=== PATIENT | female | born 1955 | race Caucasian/White ===

== ENCOUNTER 2020-10-14 06:27 | Day surgery (SDC) | payer BC, MEDICARE ==
[~2020-10-14] VITALS: Ht 170.2 cm; Wt 91.2 kg
[~2020-10-14 06:27] MED LIST: AMIO200T33 PO; LEVO150T10 PO; LISI-646 PO; LORA0.5T20 PO; RIVA20TA PO
[2020-10-14] MEDS ORDERED: VANCOMYCIN 1GM/250ML 250 ML IV ONE (08:04)
[2020-10-14] MEDS ORDERED: LIDOCAINE 2%HCL (LOCAL ANESTH.) INJ 20ML MDV ONE (08:18)
[2020-10-14] MEDS ORDERED: IODIXANOL 320MG/ML 100ML BTL IV ONE (09:19)
[2020-10-14] MEDS ORDERED: VANCOMYCIN HCL 1000 MG VL ONE (09:19)
[2020-10-14] MEDS ORDERED: MIDAZOLAM HCL 1MG/1ML-2 ML VIAL ONE ×2 (09:19→11:54)
[2020-10-14] MEDS ORDERED: fentaNYL CITRATE 100 MCG/2 ML VL ONE ×2 (09:19→11:54)
[2020-10-14] MEDS ORDERED: ACETAMINOPHEN 325 MG TAB PO PRN (13:00)
[2020-10-14] MEDS ORDERED: HYDROcodone-ACET 5/325MG TAB PO PRN (13:00)
== END 2020-10-14 14:35 | disposition home or self-care (01) ==
LOC: CATH 06:27
PROVIDERS: ATTEND Internal Medicine
DX: Z45.018 Encounter for adjustment and management of other part of cardiac pacemaker (principal); I48.0 Paroxysmal atrial fibrillation; I49.5 Sick sinus syndrome; I10 Essential (primary) hypertension; E78.5 Hyperlipidemia, unspecified; E66.01 Morbid (severe) obesity due to excess calories; Z88.1 Allergy status to other antibiotic agents; Z20.828 Contact with and (suspected) exposure to other viral communicable diseases; Z98.890 Other specified postprocedural states; Z88.8 Allergy status to other drugs, medicaments and biological substances; Z86.73 Personal history of transient ischemic attack (TIA), and cerebral infarction without residual deficits; Z87.891 Personal history of nicotine dependence; Z79.899 Other long term (current) drug therapy; Z68.31 Body mass index [BMI] 31.0-31.9, adult
CPT/HCPCS: 33208; 71045; 93005; C1785; C1892; C1898; J2250; J3010; J3370; J7030; Q9967; U0003; 99152; 99153

== ENCOUNTER → 2020-11-04 | Outpatient (CLI) | payer BC, MEDICARE ==
[~2020-11-04] MED LIST changes: -LISI-646 PO; +LISI20TA28 PO
[2020-11-04 15:04] LABS: Potassium 4.4 mmol/L (3.5-5.1)
[2020-11-04 15:09] LABS: Albumin 3.8 g/dL (3.4-5.0); BUN/Creatinine Ratio 14.4; Calcium 9.2 mg/dL (8.5-10.1)
[2020-11-04 15:12] LABS: Bilirubin, Total 0.3 mg/dL (0.2-1.0)
[2020-11-04 16:00] LABS: Urine Bacteria FEW /hpf (None Seen); Urine Blood 1+ /uL (Negative); Urine Specific Gravity 1.022 (1.001-1.035); Urine WBC 107 /hpf (0 - 5)
== END | disposition home or self-care (01) ==
LOC: LAB 14:29
PROVIDERS: ATTEND Internal Medicine
DX: I12.9 Hypertensive chronic kidney disease with stage 1 through stage 4 chronic kidney disease, or unspecified chronic kidney disease (principal); N18.30 Chronic kidney disease, stage 3 unspecified
CPT/HCPCS: 36415; 80053; 80162; 81001

== ENCOUNTER → 2020-11-29 | Outpatient (CLI) | payer BC, MEDICARE ==
[~2020-11-29] MED LIST changes: +LISI-646 PO; -LISI20TA28 PO
== END | disposition home or self-care (01) ==
LOC: XYW 07:43
PROVIDERS: ATTEND Internal Medicine
DX: I07.1 Rheumatic tricuspid insufficiency (principal); R42 Dizziness and giddiness
CPT/HCPCS: 93306

== ENCOUNTER → 2021-01-14 | Outpatient (CLI) | payer BC, MEDICARE ==
[~2021-01-14] VITALS: Ht 170.2 cm; Wt 87.1 kg
[~2021-01-14] MED LIST changes: +ADENOSINE 73 MG in GIVE UN-DILUTED 0 ML IV STA
[2021-01-14 08:42] VITALS: BP 168/64
== END | disposition home or self-care (01) ==
LOC: XY 07:02
PROVIDERS: ATTEND Internal Medicine
DX: R00.2 Palpitations (principal)
CPT/HCPCS: 78452; 93017; A9500; J0153

== ENCOUNTER → 2021-02-12 | Outpatient (CLI) | payer BC, MEDICARE ==
[~2021-02-12] MED LIST changes: -ADENOSINE 73 MG in GIVE UN-DILUTED 0 ML IV STA; -LISI-646 PO; +LISI20TA28 PO
[2021-02-12 12:55] LABS: Basophils # (auto) 0.1 10 ^3/uL (0-0.2); Basophils % (auto) 0.9 % (0.0-2.0); Eosinophils # (auto) 0.1 10 ^3/uL (0-0.8); Eosinophils % (auto) 1.4 % (0.0-7.0); Hematocrit 40.2 % (36.0-46.0); Hemoglobin 13.2 g/dL (12.2-16.2); Lymphocytes # (auto) 2.3 10 ^3/uL (0.4-5.4); Lymphocytes % (auto) 26.8 % (10.0-50.0); Mean Corpuscular Hemoglobin 29.6 pg (28.0-32.0); Mean Corpuscular Volume 89.7 fL (80.0-100.0); Monocytes # (auto) 0.7 10 ^3/uL (0-1.3); Monocytes % (auto) 7.8 % (0.0-12.0); Neutrophils # (auto) 5.3 10 ^3/uL (1.6-8.6); Neutrophils % (auto) 63.1 % (37.0-80.0); Platelet Count (auto) 296 10^3/uL (140-450); Red Blood Cells 4.48 10^6/uL (4.0-5.20); Red Cell Distribution Width 13.3 % (11.8-14.3); White Blood Cell 8.5 10^3/uL (4.4-10.8)
[2021-02-12 13:40] LABS: Albumin 3.5 g/dL (3.4-5.0); Calcium 9.1 mg/dL (8.5-10.1); Potassium 4.1 mmol/L (3.5-5.1)
[2021-02-12 13:44] LABS: BUN/Creatinine Ratio 13.2; Bilirubin, Total 0.4 mg/dL (0.2-1.0); Total Protein 7.2 g/dL (6.4-8.2)
[2021-02-12 14:04] LABS: Free T4 (Free Thyroxine) 1.91 ng/dL (0.89-1.76); T3 Total 0.62 ng/mL (0.60-1.81)
== END | disposition home or self-care (01) ==
LOC: LAB 12:34
PROVIDERS: ATTEND Physician Assistant
DX: I12.9 Hypertensive chronic kidney disease with stage 1 through stage 4 chronic kidney disease, or unspecified chronic kidney disease (principal); N18.30 Chronic kidney disease, stage 3 unspecified; E78.5 Hyperlipidemia, unspecified; E03.9 Hypothyroidism, unspecified; E55.9 Vitamin D deficiency, unspecified
CPT/HCPCS: 36415; 80053; 80061; 82306; 84439; 84443; 84480; 85025

== ENCOUNTER 2022-07-13 14:40 | Emergency (ER) | payer BC, MEDICARE ==
[~2022-07-13] VITALS: Ht 172.7 cm; Wt 76.0 kg
[2022-07-13 17:04] LABS: Basophils # (auto) 0.1 10 ^3/uL (0-0.2); Basophils % (auto) 0.4 % (0.0-2.0); Eosinophils # (auto) 0.3 10 ^3/uL (0-0.8); Eosinophils % (auto) 1.5 % (0.0-7.0); Hematocrit 43.6 % (36.0-46.0); Lymphocytes # (auto) 0.9 10 ^3/uL (0.4-5.4); Lymphocytes % (auto) 5.1 % (10.0-50.0); Mean Corpuscular Hgb Conc. 32.2 g/dL (32.0-36.0); Monocytes # (auto) 1.1 10 ^3/uL (0-1.3); Monocytes % (auto) 6.4 % (0.0-12.0); Neutrophils # (auto) 14.9 10 ^3/uL (1.6-8.6); Neutrophils % (auto) 86.6 % (37.0-80.0); Red Blood Cells 4.85 10^6/uL (4.0-5.20); Red Cell Distribution Width 13.4 % (11.8-14.3); White Blood Cell 17.2 10^3/uL (4.4-10.8)
[2022-07-13 17:22] LABS: Albumin 3.5 g/dL (3.4-5.0); Calcium 8.9 mg/dL (8.5-10.1); Potassium 3.9 mmol/L (3.5-5.1)
[2022-07-13 17:23] LABS: INR 1.17 (0.9-1.15); Partial Thromboplastin Time 34.2 sec (24.6-33.4)
[2022-07-13 17:26] LABS: BUN/Creatinine Ratio 16.8; Bilirubin, Total 1.2 mg/dL (0.2-1.0); Total Protein 6.7 g/dL (6.4-8.2)
[2022-07-13] MEDS ORDERED: LEVO-28 PO (17:33)
[2022-07-13] MEDS ORDERED: cefTRIAXone SOD 1,000 MG VL IM ONE (17:45)
[2022-07-13] MEDS ORDERED: AZITHROMYCIN 250 MG TAB PO ONE (17:45)
[2022-07-13 21:10] VITALS: BP 139/63
[2022-07-13] MEDS ORDERED: ONDANSETRON ODT 4 MG TAB PO ONE (21:30)
== END 2022-07-13 21:44 | disposition home or self-care (01) ==
LOC: ER 14:40
DX: I13.0 Hypertensive heart and chronic kidney disease with heart failure and stage 1 through stage 4 chronic kidney disease, or unspecified chronic kidney disease (principal); I50.9 Heart failure, unspecified; N18.9 Chronic kidney disease, unspecified; J18.9 Pneumonia, unspecified organism; Z20.822 Contact with and (suspected) exposure to COVID-19; Z86.73 Personal history of transient ischemic attack (TIA), and cerebral infarction without residual deficits
CPT/HCPCS: 36415; 71045; 80053; 83880; 84484; 85025; 85379; 85610; 85730; 87426; 93005; 96372; 99285; J0696; Q0162

== ENCOUNTER → 2022-07-15 | Outpatient (CLI) | payer BC ==
[~2022-07-15] MED LIST changes: +LEVO-28 PO
== END | disposition home or self-care (01) ==
LOC: LAB 12:36
PROVIDERS: ATTEND Nurse Practitioner Family
DX: N39.0 Urinary tract infection, site not specified (principal)
CPT/HCPCS: 87086

== ENCOUNTER → 2023-03-03 | Outpatient (CLI) | payer BC, MEDICARE ==
[2023-03-03 07:28] LABS: Basophils # (auto) 0.1 10 ^3/uL (0-0.2); Basophils % (auto) 0.8 % (0.0-2.0); Eosinophils # (auto) 0.2 10 ^3/uL (0-0.8); Eosinophils % (auto) 1.8 % (0.0-7.0); Hematocrit 45.2 % (36.0-46.0); Hemoglobin 14.9 g/dL (12.2-16.2); Lymphocytes # (auto) 2.7 10 ^3/uL (0.4-5.4); Mean Corpuscular Hemoglobin 30.2 pg (28.0-32.0); Mean Corpuscular Volume 91.6 fL (80.0-100.0); Monocytes # (auto) 0.9 10 ^3/uL (0-1.3); Monocytes % (auto) 8.7 % (0.0-12.0); Neutrophils # (auto) 5.9 10 ^3/uL (1.6-8.6); Neutrophils % (auto) 60.7 % (37.0-80.0); Red Blood Cells 4.94 10^6/uL (4.0-5.20); Red Cell Distribution Width 13.9 % (11.8-14.3); White Blood Cell 9.8 10^3/uL (4.4-10.8)
[2023-03-03 08:38] LABS: Albumin 3.5 g/dL (3.4-5.0); Calcium 9.2 mg/dL (8.5-10.1); Potassium 3.9 mmol/L (3.5-5.1)
[2023-03-03 08:45] LABS: Bilirubin, Total 0.5 mg/dL (0.2-1.0); Total Protein 6.8 g/dL (6.4-8.2)
== END | disposition home or self-care (01) ==
LOC: LAB 07:13
PROVIDERS: ATTEND Nurse Practitioner Family
DX: I48.20 Chronic atrial fibrillation, unspecified (principal); E03.9 Hypothyroidism, unspecified; E78.5 Hyperlipidemia, unspecified
CPT/HCPCS: 36415; 80053; 80061; 84439; 84443; 85025

== ENCOUNTER → 2023-10-05 | Outpatient (CLI) | payer BC, MEDICARE ==
[~2023-10-05] MED LIST changes: -LEVO-28 PO; +LEVO500T91 PO; -LISI20TA28 PO; +LISI20TA56 PO; +LORA-1121 PO; -LORA0.5T20 PO
== END | disposition home or self-care (01) ==
LOC: LAB 07:31
PROVIDERS: ATTEND Nurse Practitioner Family
DX: E03.9 Hypothyroidism, unspecified (principal)
CPT/HCPCS: 36415; 84439; 84443

== ENCOUNTER → 2024-02-28 | Outpatient (CLI) | payer BC, MEDICARE ==
[2024-02-28 07:23] LABS: Basophils # (auto) 0.1 10 ^3/uL (0-0.2); Eosinophils # (auto) 0.2 10 ^3/uL (0-0.8); Eosinophils % (auto) 2.3 % (0.0-7.0); Hematocrit 40.4 % (36.0-46.0); Hemoglobin 13.3 g/dL (12.2-16.2); Lymphocytes # (auto) 2.4 10 ^3/uL (0.4-5.4); Lymphocytes % (auto) 27.2 % (10.0-50.0); Mean Corpuscular Hemoglobin 30.2 pg (28.0-32.0); Mean Corpuscular Hgb Conc. 32.9 g/dL (32.0-36.0); Mean Corpuscular Volume 91.8 fL (80.0-100.0); Monocytes # (auto) 0.9 10 ^3/uL (0-1.3); Monocytes % (auto) 10.2 % (0.0-12.0); Neutrophils # (auto) 5.2 10 ^3/uL (1.6-8.6); Neutrophils % (auto) 59.3 % (37.0-80.0); Red Cell Distribution Width 13.6 % (11.8-14.3); White Blood Cell 8.8 10^3/uL (4.4-10.8)
[2024-02-28 08:07] LABS: Alanine Aminotransferase 23 U/L (7-40); Albumin 4.3 g/dL (3.2-4.8); Alkaline Phosphatase 75 U/L (46-116); Anion Gap 6 (5-15); Aspartate Aminotransferase 13 U/L (13-40); BUN/Creatinine Ratio 14.6 (10.0-20.0); Bilirubin, Direct 0.1 mg/dL (<0.3); Blood Urea Nitrogen 20 mg/dL (9-23); Calcium 9.7 mg/dL (8.5-10.1); Carbon Dioxide 28 mmol/L (20-30); Chloride 107 mmol/L (98-107); Cholesterol 211 mg/dL (< 200); Glucose 96 mg/dL (74-106); HDL Cholesterol 51 mg/dL (40-59); LDL Cholesterol 136 mg/dL (< 100); Sodium 141 mmol/L (136-145); Triglycerides 123 mg/dL (< 150)
[2024-02-28 08:08] LABS: Bilirubin, Total 0.5 mg/dL (0.2-1.0); Total Protein 6.7 g/dL (5.7-8.2)
== END | disposition home or self-care (01) ==
LOC: LAB 07:04
PROVIDERS: ATTEND Specialist
DX: E11.9 Type 2 diabetes mellitus without complications (principal); E03.9 Hypothyroidism, unspecified; E78.5 Hyperlipidemia, unspecified; I10 Essential (primary) hypertension; D64.9 Anemia, unspecified; R68.89 Other general symptoms and signs
CPT/HCPCS: 36415; 80053; 80061; 82043; 82248; 83036; 84439; 84443; 85025

== ENCOUNTER → 2024-06-01 | Outpatient (CLI) | payer BC, MEDICARE ==
[2024-06-01 07:38] LABS: Basophils # (auto) 0.1 10 ^3/uL (0-0.2); Basophils % (auto) 0.9 % (0.0-2.0); Eosinophils # (auto) 0.2 10 ^3/uL (0-0.8); Eosinophils % (auto) 1.6 % (0.0-7.0); Hematocrit 45.1 % (36.0-46.0); Hemoglobin 15.2 g/dL (12.2-16.2); Lymphocytes # (auto) 2.7 10 ^3/uL (0.4-5.4); Lymphocytes % (auto) 26.7 % (10.0-50.0); Mean Corpuscular Hemoglobin 30.8 pg (28.0-32.0); Mean Corpuscular Hgb Conc. 33.7 g/dL (32.0-36.0); Mean Corpuscular Volume 91.4 fL (80.0-100.0); Monocytes % (auto) 9.5 % (0.0-12.0); Neutrophils # (auto) 6.3 10 ^3/uL (1.6-8.6); Neutrophils % (auto) 61.3 % (37.0-80.0); Nucleated Red Blood Cells % 0.1 %; Red Blood Cells 4.94 10^6/uL (4.0-5.20); Red Cell Distribution Width 14.2 % (11.8-14.3); White Blood Cell 10.3 10^3/uL (4.4-10.8)
[2024-06-01 07:50] LABS: Alanine Aminotransferase 22 U/L (7-40); Albumin 4.3 g/dL (3.2-4.8); Alkaline Phosphatase 83 U/L (46-116); Anion Gap 3 (5-15); Aspartate Aminotransferase 9 U/L (13-40); BUN/Creatinine Ratio 14.6 (10.0-20.0); Bilirubin, Direct 0.2 mg/dL (<0.3); Bilirubin, Total 0.5 mg/dL (0.2-1.0); Blood Urea Nitrogen 21 mg/dL (9-23); Calcium 9.5 mg/dL (8.7-10.4); Carbon Dioxide 32 mmol/L (20-30); Chloride 108 mmol/L (98-107); Cholesterol 125 mg/dL (< 200); Glucose 99 mg/dL (74-106); Potassium 4.1 mmol/L (3.5-5.1); Sodium 143 mmol/L (136-145); Total Protein 6.7 g/dL (5.7-8.2)
== END | disposition home or self-care (01) ==
LOC: LAB 06:59
PROVIDERS: ATTEND Specialist
DX: I10 Essential (primary) hypertension (principal); E11.9 Type 2 diabetes mellitus without complications; E78.5 Hyperlipidemia, unspecified; R68.89 Other general symptoms and signs; E03.9 Hypothyroidism, unspecified; D64.9 Anemia, unspecified
CPT/HCPCS: 36415; 80048; 80076; 82465; 83036; 84443; 85025

== ENCOUNTER → 2024-08-10 | Outpatient (CLI) | payer BC, MEDICARE ==
[2024-08-10 07:37] LABS: Basophils # (auto) 0.1 10 ^3/uL (0-0.2); Eosinophils # (auto) 0.2 10 ^3/uL (0-0.8); Eosinophils % (auto) 1.9 % (0.0-7.0); Hematocrit 43.2 % (36.0-46.0); Hemoglobin 14.7 g/dL (12.2-16.2); Lymphocytes # (auto) 2.2 10 ^3/uL (0.4-5.4); Lymphocytes % (auto) 24.4 % (10.0-50.0); Mean Corpuscular Hemoglobin 31.1 pg (28.0-32.0); Mean Corpuscular Hgb Conc. 34.1 g/dL (32.0-36.0); Mean Corpuscular Volume 91.1 fL (80.0-100.0); Monocytes # (auto) 0.9 10 ^3/uL (0-1.3); Monocytes % (auto) 9.9 % (0.0-12.0); Neutrophils # (auto) 5.7 10 ^3/uL (1.6-8.6); Neutrophils % (auto) 62.8 % (37.0-80.0); Platelet Count (auto) 249 10^3/uL (140-450); Red Blood Cells 4.74 10^6/uL (4.0-5.20); Red Cell Distribution Width 14.4 % (11.8-14.3)
[2024-08-10 08:05] LABS: Alanine Aminotransferase 39 U/L (7-40); Albumin 4.4 g/dL (3.2-4.8); Alkaline Phosphatase 86 U/L (46-116); Anion Gap 4 (5-15); Aspartate Aminotransferase 17 U/L (13-40); BUN/Creatinine Ratio 12.5 (10.0-20.0); Bilirubin, Direct 0.2 mg/dL (<0.3); Bilirubin, Total 0.6 mg/dL (0.2-1.0); Blood Urea Nitrogen 16 mg/dL (9-23); Calcium 9.8 mg/dL (8.7-10.4); Carbon Dioxide 30 mmol/L (20-31); Chloride 107 mmol/L (98-107); Cholesterol 124 mg/dL (< 200); Glucose 102 mg/dL (74-106); HDL Cholesterol 57 mg/dL (40-59); LDL Cholesterol 49 mg/dL (< 100); Potassium 4.3 mmol/L (3.5-5.1); Sodium 141 mmol/L (136-145); Total Protein 6.9 g/dL (5.7-8.2); Triglycerides 137 mg/dL (< 150)
== END | disposition home or self-care (01) ==
LOC: LAB 07:22
PROVIDERS: ATTEND Specialist
DX: R73.09 Other abnormal glucose (principal); R68.89 Other general symptoms and signs; I10 Essential (primary) hypertension; E03.9 Hypothyroidism, unspecified; D64.9 Anemia, unspecified; E78.5 Hyperlipidemia, unspecified
CPT/HCPCS: 36415; 80048; 80061; 80076; 83036; 84443; 85025

== ENCOUNTER 2024-11-08 06:33 | Day surgery (SDC) | payer BC, MEDICARE ==
[2024-11-07 10:52] LABS: Basophils # (auto) 0.1 10 ^3/uL (0-0.2); Basophils % (auto) 0.6 % (0.0-2.0); Eosinophils # (auto) 0.1 10 ^3/uL (0-0.8); Eosinophils % (auto) 1.4 % (0.0-7.0); Hematocrit 43.3 % (36.0-46.0); Hemoglobin 14.5 g/dL (12.2-16.2); Lymphocytes # (auto) 2.5 10 ^3/uL (0.4-5.4); Lymphocytes % (auto) 23.8 % (10.0-50.0); Mean Corpuscular Hemoglobin 30.7 pg (28.0-32.0); Mean Corpuscular Hgb Conc. 33.5 g/dL (32.0-36.0); Mean Corpuscular Volume 91.6 fL (80.0-100.0); Monocytes # (auto) 0.8 10 ^3/uL (0-1.3); Monocytes % (auto) 7.7 % (0.0-12.0); Neutrophils # (auto) 6.9 10 ^3/uL (1.6-8.6); Neutrophils % (auto) 66.5 % (37.0-80.0); Nucleated Red Blood Cells % 0.1 %; Platelet Count (auto) 242 10^3/uL (140-450); Red Blood Cells 4.73 10^6/uL (4.0-5.20); White Blood Cell 10.4 10^3/uL (4.4-10.8)
[2024-11-07 11:23] LABS: INR 1.25 (0.9-1.15)
[2024-11-07 11:29] LABS: Chloride 105 mmol/L (98-107); Potassium 4.3 mmol/L (3.5-5.1)
[2024-11-07 11:30] LABS: Carbon Dioxide 30 mmol/L (20-31)
[2024-11-07 11:31] LABS: Calcium 10.1 mg/dL (8.7-10.4)
[2024-11-07 11:35] LABS: Glucose 101 mg/dL (74-106)
[2024-11-07 11:36] LABS: BUN/Creatinine Ratio 12.6 (10.0-20.0); Blood Urea Nitrogen 19 mg/dL (9-23); Urine Bacteria FEW /hpf (None Seen); Urine Blood TRACE /uL (Negative); Urine Clarity Clear (Clear); Urine Color Light-Yellow (Yellow); Urine Protein, UAD 1+ (Negative); Urine Specific Gravity 1.016 (1.001-1.035); Urine Squamous Epithelial Cell FEW /hpf (<5); Urine Urobilinogen Normal (Negative); Urine WBC 2 /HPF (0-5)
[2024-11-07 12:32] LABS: Anion Gap 7 (5-15); Sodium 142 mmol/L (136-145)
[~2024-11-08] VITALS: Ht 167.6 cm; Wt 77.1 kg
[~2024-11-08 06:33] MED LIST changes: -AMIO200T33 PO; +DIGO0.12 PO; +DILT1TAB12 PO; +DRON400T PO; +EVOL140I SC; +EZET10TA22 PO; +LEVO112T4 PO; -LEVO150T10 PO; -LEVO500T91 PO; -LISI20TA56 PO; +METO-158 PO
[2024-11-08] MEDS: LIDOCAINE VISCOUS 2% 15ML UD PO ONE (08:30)
[2024-11-08] MEDS: fentaNYL CITRATE 100 MCG/2 ML VL IV ONE (08:30)
[2024-11-08] MEDS: MIDAZOLAM HCL 2MG/2ML 2ml VIAL (1mg/ml) IV ONE (08:40)
--- NOTE | 2024-11-08 09:06 | DVHOP2 ---
Operative Report Trans-Esophageal Echocardiogram PROCEDURE REPORT Date of Service: 11/08/2024 Imaging Services Director: Emma Velasquez MD PROCEDURE PERFORMED: Transesophageal echocardiogram, conscious sedation administration and supervision, more than 15 minutes. Intra cardiac bubble study. Electrical Cardioversion. PREOPERATIVE DIAGNOSES: Atrial fibrillation: sent for ELBA/Electrical Cardioversi on. DESCRIPTION OF PROCEDURE: The patient signed informed consent understanding risks, benefits and alternatives of the procedure, she wished to proceed. The patient was given 15 mL of oral viscous lidocaine. She was placed in a left lateral decubitus position and conscious sedation was administered per sleep lab technologist protocol (1 mg of Versed and 50 mcg of Fentanyl). I administered a bite block into her mouth and a ELBA probe into the mid esophagus without any difficulties or complications. Multiple planar images were obtained. Bubble study was also performed. At the completion of procedure, ELBA probe was removed and there were no immediate complications. Vitals signs were stable throughout the procedure. As there was no intracardiac thrombus, we proceeded with Electrical Cardioversion. Patient was given extra sedation (another 1 mg of Versed and 50 mcg of Fentanyl). Patient was shocked with 120 Joules and was successfully Cardioverted to Normal sinus rhythm. FINDINGS: 1. Left ventricle: LVEF was 65%. There was no gross wall motion abnormality seen. 2. Right ventricle: Normal RV size with normal systolic function. 3. Left atrium: LA was mildly enlarged 4. Right atrium: RA was mildly enlarged 5. Mitral valve,: Mild Mitral regurgitation, no significant stenosis, normal functioning valve 6. Left atrial appendage: No evidence of thrombus. 7. Aortic valve: Aortic valve was trileaflet. There was no stenosis/Insufficiency. 8. Pulmonic valve: Trivial pulmonic insufficiency. No significant stenosis. 9. Tricuspid valve: Mild tricuspid regurgitation was seen. 10. Interatrial septum: Negative color flow for right to left shunt was observed. Bubble study was negative. 11. Pericardium: No significant effusion. 12. Thoracic aorta: No significant plaquing. As there was no intracardiac thrombus, we proceeded with Electrical Cardioversion. Patient was successfully Cardioverted to Normal sinus rhythm. Before discharge from Cathlab, she was found to be back to Atrial fibrillation with moderate ventricular response (stable hemodynamics) You may consider referral for A-fib Ablation (PVI) Continue full anticoagulation (on Xarelto). EMMA VELASQUEZ MD Nov 08, 2024 09:06
--- NOTE | 2024-11-08 16:14 | ECG ---
[facility] Test Date: 2024-11-08 Test Time: 07:36:31 Pat Name: FARHAT MORRIS Department: Room: Gender: F Vp Product Management: : 1955 Requested By: EMMA VELASQUEZ Order Number: [id number] Reading MD: Lobo Fuentes Measurements Intervals [place] Rate: 69 P: 0 TX: 0 QRS: 63 QRSD: 70 T: -88 QT: 374 QTc: 400 Interpretive Statements Atrial flutter/fibrillation Electronic ventricular pacemaker LVH with secondary repolarization abnormality Electronically Signed On 11-09-2024 8:13:12 PST by Lobo Fuentes Please click the below link to view image of tracing.
--- NOTE | 2024-11-09 14:51 | ECG ---
[facility] Test Date: 2024-11-08 Test Time: 08:58:48 Pat Name: FARHAT MORRIS Department: Room: Gender: F Flat Machine Cutter: ANAMIKA : 1955 Requested By: EMMA VELASQUEZ Order Number: [id number] Reading MD: Lobo Fuentes Measurements Intervals [place] Rate: 71 P: 0 NE: 0 QRS: 17 QRSD: 78 T: -72 QT: 378 QTc: 410 Interpretive Statements Demand pacemaker, interpretation is based on intrinsic rhythm Atrial fibrillation with premature ventricular or aberrantly conducted complexes ST & T wave abnormality, consider inferior ischemia or digitalis effect ST & T wave abnormality, consider anterolateral ischemia or digitalis effect Electronically Signed On 11-10-2024 8:30:29 PST by Lobo Fuentes Please click the below link to view image of tracing.
== END 2024-11-08 10:23 | disposition home or self-care (01) ==
LOC: EEVIPCON → CATH 06:33
PROVIDERS: ATTEND Internal Medicine Cardiovascular Disease
DX: I48.91 Unspecified atrial fibrillation (principal); I08.1 Rheumatic disorders of both mitral and tricuspid valves; R00.2 Palpitations; D64.9 Anemia, unspecified; I49.5 Sick sinus syndrome; G47.33 Obstructive sleep apnea (adult) (pediatric); I48.92 Unspecified atrial flutter; N18.9 Chronic kidney disease, unspecified; E78.5 Hyperlipidemia, unspecified; Z95.0 Presence of cardiac pacemaker; Z88.8 Allergy status to other drugs, medicaments and biological substances
CPT/HCPCS: 36415; 80048; 81001; 85025; 85610; 85730; 92960; 93005; 93312; 93325; J2250; J3010; 99152